=== PATIENT | male | born 1990 | race Caucasian/White ===

== ENCOUNTER 2016-06-02 03:33 | Emergency (ER) | payer BC ==
[~2016-06-02] VITALS: Ht 180.3 cm; Wt 64.2 kg
[~2016-06-02 03:33] MED LIST: AMOXICILLIN875 MG OR; CEPHALEXIN500 MG PO; FLEXERIL OR; FLEXERIL PO; HYDROXYZ HCL25 MG PO; LORTAB 10 PO; LORTAB 5 OR; LORTAB 5/3255 MG PO; LORTAB5 PO; MEDDOSEPAK PO; NAPROSYN500 MG PO; NO; NO HOME MEDS; ULTRAM50 MG OR; ULTRAM50 MG PO; ZOFRAN ODT8 MG SL
[2016-06-02] MEDS ORDERED: AMOXICILLIN500 MG PO (04:21)
[2016-06-02] MEDS ORDERED: PERCOCET 5/325M1 TAB PO (04:21)
[2016-06-02 04:47] VITALS: BP 124/78
== END 2016-06-02 05:05 | disposition home or self-care (01) | DRG 159 ==
LOC: ED 03:33
DX: K02.9 Dental caries, unspecified (principal); K08.89 Other specified disorders of teeth and supporting structures

== ENCOUNTER 2017-06-24 14:53 | Emergency (ER) | payer SELFPAY ==
[~2017-06-24] VITALS: Ht 180.3 cm; Wt 64.6 kg
[~2017-06-24 14:53] MED LIST changes: +AMOXICILLIN500 MG PO; +PERCOCET 5/325M1 TAB PO
[2017-06-24] MEDS ORDERED: AUGMENTIN875TAB PO (15:18)
[2017-06-24] MEDS ORDERED: FLOXIN OTIC0.3 % OT (15:18)
[2017-06-24] MEDS ORDERED: MOTRIN400 MG PO (15:20)
[2017-06-24 15:36] VITALS: BP 158/78
== END 2017-06-24 15:35 | disposition home or self-care (01) | DRG 156 ==
LOC: ED 14:53
DX: H60.92 Unspecified otitis externa, left ear (principal); F17.210 Nicotine dependence, cigarettes, uncomplicated; H66.92 Otitis media, unspecified, left ear

== ENCOUNTER 2018-04-03 00:39 | Emergency (ER) | payer SELFPAY ==
[~2018-04-03] VITALS: Ht 180.3 cm; Wt 66.0 kg
[~2018-04-03 00:39] MED LIST changes: +AUGMENTIN875TAB PO; +FLOXIN OTIC0.3 % OT; +MOTRIN400 MG PO
[2018-04-03] MEDS ORDERED: AMOXICILLIN500 MG PO (01:04)
[2018-04-03] MEDS ORDERED: MOTRIN800 MG PO (01:04)
[2018-04-03] MEDS ORDERED: PERCOCET 5/325M1 TAB PO (01:04)
[2018-04-03 01:15] VITALS: BP 135/83
== END 2018-04-03 01:15 | disposition home or self-care (01) | DRG 159 ==
LOC: ED 00:39
DX: K08.89 Other specified disorders of teeth and supporting structures (principal); K02.9 Dental caries, unspecified

== ENCOUNTER 2018-08-14 11:49 | Emergency (ER) | payer SELFPAY ==
[~2018-08-14] VITALS: Ht 180.3 cm; Wt 67.0 kg
[~2018-08-14 11:49] MED LIST changes: +MOTRIN800 MG PO
[2018-08-14] MEDS ORDERED: LORTAB 1010 MG PO (13:32)
[2018-08-14 13:50] VITALS: BP 135/83
== END 2018-08-14 13:50 | disposition home or self-care (01) | DRG 563 ==
LOC: ED 11:49
DX: S92.424A Nondisplaced fracture of distal phalanx of right great toe, initial encounter for closed fracture (principal); F17.210 Nicotine dependence, cigarettes, uncomplicated; W22.09XA Striking against other stationary object, initial encounter; Y93.89 Activity, other specified; Y92.009 Unspecified place in unspecified non-institutional (private) residence as the place of occurrence of the external cause

== ENCOUNTER 2021-09-29 13:28 | Emergency (ER) | payer SELFPAY ==
[~2021-09-29] VITALS: Ht 180.3 cm; Wt 65.9 kg
[~2021-09-29 13:28] MED LIST changes: +LORTAB 1010 MG PO
[2021-09-29 14:08] VITALS: BP 121/88
[2021-09-29] MEDS ORDERED: EC-NAPROXEN500 MG PO (14:10)
[2021-09-29] MEDS ORDERED: OMNICEF300 M1 PO (14:10)
== END 2021-09-29 14:27 | disposition home or self-care (01) | DRG 159 ==
LOC: ED 13:28
DX: K02.9 Dental caries, unspecified (principal)

== ENCOUNTER 2021-10-28 09:59 | Emergency (ER) | payer MEDICAID ==
[~2021-10-28] VITALS: Ht 180.3 cm; Wt 68.0 kg
[~2021-10-28 09:59] MED LIST changes: +EC-NAPROXEN500 MG PO; +OMNICEF300 M1 PO
[2021-10-28] MEDS ORDERED: FLEXERIL5 M1 PO (12:39)
[2021-10-28 12:42] VITALS: BP 120/82
== END 2021-10-28 12:55 | disposition home or self-care (01) ==
LOC: ED 09:59
DX: M54.6 Pain in thoracic spine (principal); M54.2 Cervicalgia

== ENCOUNTER 2022-03-11 11:37 | Emergency (ER) | payer MEDICAID ==
[~2022-03-11] VITALS: Ht 180.3 cm; Wt 70.0 kg
[~2022-03-11 11:37] MED LIST changes: +FLEXERIL5 M1 PO
[2022-03-11 12:24] VITALS: BP 113/84
[2022-03-11 12:30] VITALS: BP 121/81
[2022-03-11] MEDS ORDERED: TRAMADOL HYDROC50 M1 PO (12:38)
[2022-03-11] MEDS ORDERED: PENICILLN VK500 MG PO (12:38)
[2022-03-11 12:45] VITALS: BP 124/75
== END 2022-03-11 12:50 | disposition home or self-care (01) ==
LOC: ED 11:37
DX: K02.9 Dental caries, unspecified (principal); M84.68XA Pathological fracture in other disease, other site, initial encounter for fracture; K08.409 Partial loss of teeth, unspecified cause, unspecified class; F17.200 Nicotine dependence, unspecified, uncomplicated

== ENCOUNTER 2022-07-18 10:15 | Emergency (ER) | payer MEDICAID ==
[~2022-07-18] VITALS: Ht 180.3 cm; Wt 68.0 kg
[~2022-07-18 10:15] MED LIST changes: +PENICILLN VK500 MG PO; +TRAMADOL HYDROC50 M1 PO
[2022-07-18 10:21] VITALS: BP 118/74
[2022-07-18 10:30] VITALS: BP 117/69
[2022-07-18 10:50] LABS: BASO% 0.4 % (0-3); EOS% 4.5 % (0-8); HEMATOCRIT 43.3 % (39.0-50.0); HEMOGLOBIN 14.7 g/dl (14.0-18.0); IMMATURE GRANULOCYTES 0.1 % (0.0-5.0); LYMPH% 32.2 % (15-41); MEAN CELL VOLUME 87.1 fL CALC (80.0-100.0); MEAN CORPUSCULAR HGB 29.6 pG CALC (26.0-32.0); MEAN CORPUSCULAR HGB CONC 33.9 g/dL CAL (32.0-36.0); MONO% 7.9 % (2-13); NEUT# 4.05 thou/uL (1.82-7.42); NEUT% 54.9 % (42-76); RED BLOOD COUNT 4.97 mill/uL (4.70-6.10); RED CELL DISTRI WIDTH 12.5 % (11.5-15.5)
[2022-07-18] MEDS ORDERED: ZOFRAN4 MG/TAB PO (11:02)
[2022-07-18 11:07] LABS: ALBUMIN 4.8 g/dL (3.2-5.0); ALKALINE PHOSPHATASE 98 u/l (38-126); ANION GAP 14 (6-22 (CALC)); BILIRUBIN, TOTAL 0.7 mg/dL (0.2-1.3); BUN 14 mg/dL (9-20); BUN/CREATININE RATIO 13 (12-20 (CALC)); CARBON DIOXIDE 26 mmol/l (22-30); CHLORIDE 103 mmol/l (95-108); CREATININE 1.1 mg/dL (0.7-1.3); GFR FOR AFR.AMER. > 60 ML/MIN (>=60 (CALC)); GFR OTHER RACES > 60 ML/MIN (>=60 (CALC)); LIPASE 75 u/l (23-300); POTASSIUM 3.9 mmol/l (3.5-5.1); SGOT/AST 31 u/l (17-59); SODIUM 139 mmol/l (137-146); TOTAL PROTEIN 7.7 g/dL (6.3-8.2)
[2022-07-18 11:13] VITALS: BP 144/81
[2022-07-18 11:15] VITALS: BP 122/75
[2022-07-18 11:30] VITALS: BP 126/71
== END 2022-07-18 12:18 | disposition home or self-care (01) ==
LOC: ED 10:15
PROVIDERS: Family Medicine
DX: R11.2 Nausea with vomiting, unspecified (principal)

== ENCOUNTER 2023-10-10 13:17 | Emergency (ER) | payer SELFPAY ==
[2023-10-10] VITALS (13 sets, daily range): BP systolic 97–125; BP diastolic 59–75
[~2023-10-10] VITALS: Ht 180.3 cm; Wt 68.9 kg
[~2023-10-10 13:17] MED LIST changes: +ZOFRAN4 MG/TAB PO
[2023-10-10] MEDS ORDERED: SODIUM CHLORIDE 0.9% 1,000 ML IV ONE (14:30)
[2023-10-10] MEDS ORDERED: ONDANSETRON HCl 4 MG/2 ML SDV IV ONE (14:35)
[2023-10-10 14:59] LABS: BASO% 0.5 % (0-3); EOS% 7.4 % (0-8); HEMATOCRIT 37.7 % (39.0-50.0); HEMOGLOBIN 13.3 g/dl (14.0-18.0); LYMPH% 38.8 % (15-41); MEAN CELL VOLUME 87.5 fL CALC (80.0-100.0); MEAN CORPUSCULAR HGB 30.9 pG CALC (26.0-32.0); MEAN CORPUSCULAR HGB CONC 35.3 g/dL CAL (32.0-36.0); MONO% 8.2 % (2-13); NEUT# 2.68 thou/uL (1.82-7.42); NEUT% 45.1 % (42-76); RED BLOOD COUNT 4.31 mill/uL (4.70-6.10); RED CELL DISTRI WIDTH 12.2 % (11.5-15.5)
[2023-10-10 15:09] LABS: ALBUMIN 4.2 g/dL (3.2-5.0); CREATININE 0.9 mg/dL (0.7-1.3); TOTAL PROTEIN 6.5 g/dL (6.3-8.2)
[2023-10-10 15:10] LABS: BILIRUBIN, TOTAL 0.3 mg/dL (0.2-1.3)
[2023-10-10] MEDS ORDERED: ZOFRAN4 MG/TAB PO (15:58)
== END 2023-10-10 16:17 | disposition home or self-care (01) | DRG 866 ==
LOC: ED 13:17
PROVIDERS: Nurse Practitioner Family
DX: B34.9 Viral infection, unspecified (principal); D64.9 Anemia, unspecified; F17.200 Nicotine dependence, unspecified, uncomplicated